=== PATIENT | female | born 1960 | race African-American/Black ===

== ENCOUNTER 2016-12-07 23:08 | Observation (INO) | payer OTHER ==
[~2016-12-07] VITALS: Ht 157.5 cm; Wt 95.0 kg
[~2016-12-07 23:08] MED LIST: HYDR25TA5 PO; PLAV75TA29 PO; POTA10CA PO
[2016-12-07 23:13] VITALS: BP 122/63; PULSE 71; RESP 16; TEMP 97.4; O2SAT 97
--- NOTE | 2016-12-07 23:16 | PD ---
HPI Chief Complaint: General Weakness Time Seen by Provider: 23:13 Travel History International Travel<30 days: No Contact w/Intl Traveler<30days: No Traveled to known affect area: No History of Present Illness HPI This is a 56-year-old female with a history of CHF, COPD and hypertension who presents to the emergency department with low blood pressure feeling weak, short of breath and dizzy. She took a dose of Terazosin which her doctor recently started her on several minutes prior to the onset of her symptoms. When EMS arrived her systolic blood pressure was as low as 70. They gave her 600 cc of IV fluid and since then her blood pressure has been normal. She says she feels a little bit better. Her weakness lasted about an hour, was constant , moderate severity and she had no associated chest pain, fevers or chills. PFSH Past Medical History Hx Anticoagulant Therapy: Yes (PLAVIX AND ASPIRIN) Arthritis: Yes Asthma: Yes Autoimmune Disease: No Blood Disorders: No Anxiety: Yes Depression: Yes Heart Rhythm Problems: No Cancer: No Cardiac Catheterization: Yes Cardiovascular Problems: Yes ([id number] STENTX1) High Cholesterol: Yes Chemotherapy: No Chest Pain: Yes Congestive Heart Failure: Yes COPD: Yes Cerebrovascular Accident: No Coronary Artery Disease: Yes Diabetes: No Diminished Hearing: No Endocrine: No Gastrointestinal Disorders: No GERD: Yes Glaucoma: No Genitourinary: Yes (CHRONIC UTI) Headaches: No Hepatitis: No Hiatal Hernia: No Hypertension: Yes Immune Disorder: No Implanted Vascular Access Dvce: Yes Kidney Stones: No Musculoskeletal: Yes (ARTHRITIS) Neurologic: No Psychiatric: Yes Reproductive: No Respiratory: Yes (COPD) Immunizations Current: Yes Migraines: No Myocardial Infarction: No Radiation Therapy: No Renal Failure: Yes (AFTER STENT PLACED 2005 ) Seizures: No Sickle Cell Disease: No Sleep Apnea: No Thyroid Disease: No Ulcer: No Menopausal: Yes : 6 Para: 5 Miscarriage: 1 Tubal Ligation: Yes Past Surgical History Abdominal Surgery: Yes AICD: No Appendectomy: No Arteriovenous Shunt: No Body Medical Devices: STENTS AND STERNAL WIRE Cardiac Surgery: Yes (QUADRUPLE BYPASS 2004, OPEN HEART TO REMOVE CLIPS S/P INFECTION) Cholecystectomy: Yes Coronary Artery Bypass Graft: Yes (4 BYPASS 2004) Coronary Stent: Yes (1 (2005)) Ear Surgery: No Endocrine Surgery: No Eye Surgery: No Genitourinary Surgery: No Gynecologic Surgery: No Insulin Pump: No Joint Replacement: No Neurologic Surgery: No Oral Surgery: Yes (TEETH REMOVED, NOW WEARS DENTURES) Pacemaker: No Thoracic Surgery: Yes (CHEST OPENED AFTER BYPASS FOR INFECTION ) Other Surgery: Yes (CABG TIMES 4 STENT/TUBAL LIGATION) Social History Alcohol Use: No Tobacco Use: Yes (< 1 PPD) Substance Use: No Allergies-Medications (Allergen,Severity, Reaction): Coded Allergies: Percocet (Verified Allergy, Severe, ITCHING, 12/07/16) Bactrim (Verified Allergy, Mild, RASH, 12/07/16) Compazine (Verified Adverse Reaction, Severe, "JITTERY", 12/07/16) Reported Meds & Prescriptions Reported Meds & Active Scripts Active Reported Amlodipine (Amlodipine Besylate) 10 Mg Tab 10 Mg PO DAILY Losartan (Losartan Potassium) 100 Mg Tab 100 Mg PO DAILY Terazosin (Terazosin HCl) 5 Mg Cap 5 Mg PO HS Potassium Chloride ER (Potassium Chloride) 10 Meq Cap 10 Meq PO DAILY Plavix (Clopidogrel Bisulfate) 75 Mg Tab 75 Mg PO DAILY Hydrochlorothiazide 25 Mg Tab 25 Mg PO DAILY Review of Systems Except as stated in HPI: all other systems reviewed are Neg Physical Exam Narrative GENERAL:Well appearing, no acute distress SKIN: Warm and dry. HEAD: Atraumatic. Normocephalic. EYES: Pupils equal and round. No injection or drainage. ENT: Moist mucous membranes NECK: Trachea midline. CARDIOVASCULAR: Regular rate and rhythm. No murmur appreciated. Trace edema bilateral lower extremities. RESPIRATORY: Clear to auscultation. Breath sounds equal bilaterally. GASTROINTESTINAL: Abdomen soft, non-tender, nondistended. MUSCULOSKELETAL: No obvious deformities. NEUROLOGICAL: Awake and alert. No obvious cranial nerve deficits. Moving all extremities. PSYCHIATRIC: Appropriate mood and affect; insight and judgment normal. Data Data Last Documented VS Vital Signs Date Time Temp Pulse Resp B/P Pulse Ox O2 Delivery O2 Flow Rate FiO2 12/07/16 23:13 97.4 71 16 122/63 97 Room Air Orders Complete Blood Count With Diff (12/07/16 23:13) Comprehensive Metabolic Panel (12/07/16 23:13) ^ Insert Iv (12/07/16 23:13) Troponin I (12/07/16 23:13) Electrocardiogram (12/07/16 ) B-Type Natriuretic Peptide (12/07/16 23:13) Chest, Single Ap (12/07/16 ) Aspirin Chew (Aspirin Chew) (12/08/16 01:00) Magnesium (Mg) (12/08/16 00:47) Admit Order (Ed Use Only) (12/08/16 00:58) Place In Observation (12/08/16 ) Vital Signs (Adult) Q4H (12/08/16 00:58) Activity Oob With Assistance (12/08/16 00:58) Publisher Assistant / Telemetry .CONTINUOUS (12/08/16 00:58) Diet Heart Healthy (12/08/16 Breakfast) Sodium Chloride 0.9% Flush (Ns Flush) (12/08/16 01:00) Sodium Chloride 0.9% Flush (Ns Flush) (12/08/16 09:00) Creatine Kinase (Cpk) (12/08/16 05:30) Creatine Kinase (Cpk) (12/08/16 11:30) Troponin I (12/08/16 05:30) Troponin I (12/08/16 11:30) Electrocardiogram (12/09/16 05:30) Electrocardiogram (12/09/16 11:30) Naloxone Inj (Narcan Inj) (12/08/16 01:00) Labs Laboratory Tests Test 12/07/16 23:20 White Blood Count 10.3 TH/MM3 Red Blood Count 4.41 MIL/MM3 Hemoglobin 11.8 GM/DL Hematocrit 35.5 % Mean Corpuscular Volume 80.5 FL Mean Corpuscular Hemoglobin 26.8 PG Mean Corpuscular Hemoglobin 33.3 % Concent Red Cell Distribution Width 15.2 % Platelet Count 238 TH/MM3 Mean Platelet Volume 9.1 FL Neutrophils (%) (Auto) 64.0 % Lymphocytes (%) (Auto) 28.4 % Monocytes (%) (Auto) 4.4 % Eosinophils (%) (Auto) 2.6 % Basophils (%) (Auto) 0.6 % Neutrophils # (Auto) 6.6 TH/MM3 Lymphocytes # (Auto) 2.9 TH/MM3 Monocytes # (Auto) 0.5 TH/MM3 Eosinophils # (Auto) 0.3 TH/MM3 Basophils # (Auto) 0.1 TH/MM3 CBC Comment DIFF FINAL Differential Comment Sodium Level 139 MEQ/L Potassium Level 3.6 MEQ/L Chloride Level 104 MEQ/L Carbon Dioxide Level 27.6 MEQ/L Anion Gap 7 MEQ/L Blood Urea Nitrogen 19 MG/DL Creatinine 1.53 MG/DL Estimat Glomerular Filtration 42 ML/MIN Rate Random Glucose 110 MG/DL Calcium Level 8.6 MG/DL Total Bilirubin 0.1 MG/DL Aspartate Amino Transf 16 U/L (AST/SGOT) Alanine Aminotransferase 20 U/L (ALT/SGPT) Alkaline Phosphatase 127 U/L Troponin I 0.08 NG/ML B-Type Natriuretic Peptide 65 PG/ML Total Protein 7.3 GM/DL Albumin 3.2 GM/DL MDM Medical Decision Making Medical Screen Exam Complete: Yes Emergency Medical Condition: Yes Interpretation(s) Afebrile, no tachycardia, normotensive No leukocytosis Renal insufficiency Troponin is 0.08 Chest x-ray: No acute process EKG: Normal sinus rhythm, prolonged QT Differential Diagnosis Medication side effect, nSTEMI, arrhythmia, infection Narrative Course This is a 56-year-old female who had an episode of generalized weakness following taking Terazosin which is a new medication for her. She was hypotensive in the field with a systolic blood pressure in the 70s. She was placed on a monitor and an IV was established. EMS had given her 700 cc of fluid. Labs do demonstrate a slightly elevated troponin of 0.08 compared to a typically normal troponin. This could be in the setting of patient's chronic kidney disease or some strain in the setting of hypotension. I continue to think that her symptoms are related to her medication however given the patient' s significant cardiac history I think it's reasonable to observe the patient, monitor her blood pressure, and obtain serial troponins. Diagnosis Primary Impression: Hypotension Qualified Code: I95.2 - Hypotension due to drugs Admitting Information Admitting Physician Requests: Observation Darlene Mejia MD Dec 07, 2016 23:16
[2016-12-07 23:27] LABS: AUTOMATED NEUTROPHIL # 6.6 TH/MM3 (1.8-7.7); BASOPHIL # 0.1 TH/MM3 (0-0.2); BASOPHIL % 0.6 % (0.0-2.0); EOSINOPHIL # 0.3 TH/MM3 (0-0.4); EOSINOPHIL % 2.6 % (0.0-4.0); HEMATOCRIT 35.5 % (35.0-46.0); HEMO FLAGS DIFF FINAL; LYMPH % 28.4 % (9.0-44.0); LYMPHOCYTE # 2.9 TH/MM3 (1.0-4.8); MEAN CELL VOLUME 80.5 FL (80.0-100.0); MEAN CORPUSCULAR HEMOGLOBIN 26.8 PG (27.0-34.0); MEAN CORPUSCULAR HGB CONC 33.3 % (32.0-36.0); MONO % 4.4 % (0.0-8.0); PLATELET COUNT 238 TH/MM3 (150-450); RED BLOOD COUNT 4.41 MIL/MM3 (4.00-5.30); RED CELL DISTRIBUTION WIDTH 15.2 % (11.6-17.2); WHITE BLOOD COUNT 10.3 TH/MM3 (4.0-11.0)
[2016-12-07] MEDS ORDERED: LOSA100T PO (23:30)
[2016-12-07] MEDS ORDERED: TERA5CAP3 PO (23:30)
[2016-12-07] MEDS ORDERED: AMLO10TA2 PO (23:31)
[2016-12-07 23:43] LABS: ANION GAP 7 MEQ/L (5-15); AST (GOT) 16 U/L (15-37); BICARBONATE 27.6 MEQ/L (21.0-32.0); BLOOD UREA NITROGEN 19 MG/DL (7-18); CHLORIDE 104 MEQ/L (98-107); GLOMERULAR FILTRATION RATE 42 ML/MIN (>89); POTASSIUM 3.6 MEQ/L (3.5-5.1); SODIUM (NA) 139 MEQ/L (136-145)
[2016-12-07 23:48] LABS: ALKALINE PHOSPHATASE 127 U/L (45-117); ALT (GPT) 20 U/L (10-53); TOTAL BILIRUBIN ADULT 0.1 MG/DL (0.2-1.0)
[2016-12-08] VITALS (9 sets, daily range): BP systolic 106–131; BP diastolic 55–72; PULSE 62–105; RESP 18–20; TEMP 97.6–98; O2SAT 97–100
--- NOTE | 2016-12-08 00:01 | RADRPT ---
EXAM DATE/TIME: 12/07/2016 23:47 [facility] COMPARISON: CHEST SINGLE AP, September 18, 2015, 22:24. INDICATIONS : Shortness of breath. MEDICAL HISTORY : Hypertension. Chronic obstructive pulmonary disease. Hypercholesterolemia. Congestive heart failu re, Asthma. Gastoresophageal reflux SURGICAL HISTORY : CABG. Coronary artery stent. Cholecystectomy. ENCOUNTER: Initial ACUITY: 1 day PAIN SCORE: 0/10 LOCATION: Bilateral chest FINDINGS: A single view of the chest demonstrates the lungs to be symmetrically aerated without evidence of mas s, infiltrate or effusion. There is a stable scarring in the right upper lung. The heart size is uppe r limits of normal but stable compared to the prior study.. Osseous structures are intact. CONCLUSION: No acute disease. No significant change has occurred. Felipe Collins MD on December 07, 2016 at 23:58 Board Certified Radiologist. This report was verified electronically.
[2016-12-08] MEDS ORDERED: ASPIRIN 81 MG CHEW TAB CHEW ONE (01:00)
[2016-12-08] MEDS ORDERED: SODIUM CHLORIDE 0.9% FLUSH 5 ML FLUSH FLUSH PRN (01:00)
[2016-12-08] MEDS ORDERED: NALOXONE HCL 0.4 MG/ML AMP IV PRN (01:00)
--- NOTE | 2016-12-08 04:35 | HHI.HP ---
[facility] Service [facility] Primary Care Physician Annia Barba MD Admission Diagnosis hypotension, med related Diagnoses: Chief Complaint: dizziness, almost passed out Travel History International Travel<30 Days: No Contact w/Intl Traveler <30 Da: No Traveled to Known Affected Are: No History of Present Illness History from patient, ER physician, medication, interfere medical records. Patient reported that she was taking her terazosin first dose yesterday and all of a sudden she started feeling lightheadedness, dizziness and almost passed out. She therefore called her family members and told him to call 911. She reports she hasn't taken this medicine for a while. It was terazosin. Upon EMS arrival, patient was also noted to have blood pressure in the 70s systolic. This was improved by the time of arrival to ER. EMS did give patient 600 cc fluid bolus. Further work up in ER revealed mild elevation of troponin 0.08. Patient reports of history of coronary artery disease with CABG done. However she denies any chest pain/palpitations/shortness of breath/peripheral edema. She follows up with Dr. Huizar. Apart from the above, patient denies any other symptoms such as nausea/vomiting/ diarrhea. She denies any black stool or red stool. However she is somewhat of a poor historian. She was quite sleepy at the time of my exam and did not want to open her eyes for the first 15 minutes or so. She was also complaining about the bed being not comfortable. Review of Systems Constitutional: COMPLAINS OF: Fatigue, Dizziness, DENIES: Diaphoretic episodes , Fever, Weight gain, Weight loss, Chills Respiratory: DENIES: Apneas, Cough, Wheezing, Hemoptysis, Sputum production, Shortness of breath Cardiovascular: DENIES: Chest pain, Palpitations, Syncope, Dyspnea on Exertion , PND, Lower Extremity Edema Gastrointestinal: DENIES: Abdominal pain, Black stools, Bloody stools, Constipation, Diarrhea, Nausea, Vomiting Genitourinary: DENIES: Urinary frequency, Urinary incontinence, Urgency, Hematuria Musculoskeletal: COMPLAINS OF: Muscle aches, Back pain Past Family Social History Past Medical History Hypertension Obesity CAD - CABG CHF COPD chronic active tobacco abuse Past Surgical History cabg Tubal ligation Coronary angiogram and stenting Reported Medications Medications listed in EMRreviewed Allergies: Coded Allergies: Percocet (Verified Allergy, Severe, ITCHING, 12/08/16) Bactrim (Verified Allergy, Mild, RASH, 12/08/16) Compazine (Verified Adverse Reaction, Severe, "JITTERY", 12/08/16) Family History Reports a family history of cardiac problems in multiple members. Social History Smokes about 5-6 cigarettes a day. Drinks about 3-4 beersabout twice a week. Denies any drug abuse. Physical Exam Vital Signs Vital Signs Date Time Temp Pulse Resp B/P Pulse Ox O2 Delivery O2 Flow Rate FiO2 12/08/16 02:38 105 20 116/66 98 Room Air 12/07/16 23:13 97.4 71 16 122/63 97 Room Air Physical Exam GENERAL: This is a well-nourished, well-developed patient, in no apparent distress. SKIN: No rashes, ecchymoses or lesions. Cool and dry. HEAD: Atraumatic. Normocephalic. No temporal or scalp tenderness. EYES: No scleral icterus. No injection or drainage. ENT: Nose without bleeding, purulent drainage or septal hematoma. NECK: Trachea midline. No JVD CARDIOVASCULAR: Regular rate and rhythm without murmurs, gallops, or rubs. RESPIRATORY: Clear to auscultation. Breath sounds equal bilaterally. No wheezes , rales, or rhonchi. GASTROINTESTINAL: Abdomen soft, non-tender, nondistended. No guarding. MUSCULOSKELETAL: Extremities without clubbing, cyanosis, or edema No calf tenderness. NEUROLOGICAL: Awake and alert. Motor and sensory grossly within normal limits. Normal speech. Laboratory Laboratory Tests Test 12/07/16 23:20 White Blood Count 10.3 Red Blood Count 4.41 Hemoglobin 11.8 Hematocrit 35.5 Mean Corpuscular Volume 80.5 Mean Corpuscular Hemoglobin 26.8 Mean Corpuscular Hemoglobin 33.3 Concent Red Cell Distribution Width 15.2 Platelet Count 238 Mean Platelet Volume 9.1 Neutrophils (%) (Auto) 64.0 Lymphocytes (%) (Auto) 28.4 Monocytes (%) (Auto) 4.4 Eosinophils (%) (Auto) 2.6 Basophils (%) (Auto) 0.6 Neutrophils # (Auto) 6.6 Lymphocytes # (Auto) 2.9 Monocytes # (Auto) 0.5 Eosinophils # (Auto) 0.3 Basophils # (Auto) 0.1 CBC Comment DIFF FINAL Differential Comment Sodium Level 139 Potassium Level 3.6 Chloride Level 104 Carbon Dioxide Level 27.6 Anion Gap 7 Blood Urea Nitrogen 19 Creatinine 1.53 Estimat Glomerular Filtration 42 Rate Random Glucose 110 Calcium Level 8.6 Total Bilirubin 0.1 Aspartate Amino Transf 16 (AST/SGOT) Alanine Aminotransferase 20 (ALT/SGPT) Alkaline Phosphatase 127 Troponin I 0.08 B-Type Natriuretic Peptide 65 Total Protein 7.3 Albumin 3.2 Result Diagram: 12/07/16 2320 12/07/16 2320 Imaging Last 48 hours Impressions Chest X-Ray 12/07/16 0000 Signed Impressions: Service Date/Time: Wednesday, December 07, 2016 23:47 - CONCLUSION: No acute disease. No significant change has occurred. Felipe Collins MD Assessment and Plan Assessment and Plan Impression: Symptomatic hypotension/orthostatic effectdue to terazosin Elevated troponinlikely nonspecific/lab abnormality. However given that patient has high risk for ACS, we'll need to rule it out. Plan: Patient's blood pressure has improved in ER. Given that she does have history of CHF, will avoid IV hydration and hydrate her orally. Will ambulate patient in the morning. Otherwise we'll do serial cardiac enzymes and EKGs. If negative, patient can be followed up with cardiology as an outpatient. Resume her home medications apart from terazosin. However would write parameters to hold if SBP is less than 100. Her hypotension is likely due to terazosin. However history is somewhat limited and she is on multiple antihypertensives at home as well. DVT prophylaxiswith ambulation. Jerica Tejeda MD Dec 08, 2016 04:35
[2016-12-08] MEDS ORDERED: HYDROCHLOROTHIAZIDE 25 MG TAB PO SCH (09:00)
[2016-12-08] MEDS: LOSARTAN 50 MG TAB PO SCH (10:32)
[2016-12-08] MEDS: POTASSIUM CHLORIDE 10 MEQ CAP PO SCH (10:33)
[2016-12-08] MEDS: CLOPIDOGREL 75 MG TAB PO SCH (10:34)
[2016-12-08] MEDS: SODIUM CHLORIDE 0.9% FLUSH 5 ML FLUSH FLUSH SCH ×2 (10:35→21:56)
[2016-12-08] MEDS ORDERED: HEPARIN-D5W INJ 250 ML IV SCH (13:30)
--- NOTE | 2016-12-08 13:35 | HHI.PR ---
Subjective Remarks Follow-up for hypotension and elevated troponin. at bedside. The patient feels well at this time. She denies any further lightheadedness or dizziness. She states she ambulated with PT with no difficulties. She states that last night she took terazosin for the first time, and afterwards felt lightheaded and dizzy. She denies having any chest pain. She does state that the time she had a little shortness of breath and diaphoresis. No nausea. She does not recall when her last stress test or cardiac catheterization was done. Her credit and collections analyst is Dr. Huizar. Objective Vitals Vital Signs Date Time Temp Pulse Resp B/P Pulse Ox O2 Delivery O2 Flow Rate FiO2 12/08/16 10:00 73 18 131/72 97 Room Air 12/08/16 06:00 68 18 120/56 99 Room Air 12/08/16 02:38 105 20 116/66 98 Room Air 12/07/16 23:13 97.4 71 16 122/63 97 Room Air Result Diagram: 12/07/16 2320 12/07/16 232 Imaging Last Impressions Chest X-Ray 12/07/16 0000 Signed Impressions: Service Date/Time: Wednesday, December 07, 2016 23:47 - CONCLUSION: No acute disease. No significant change has occurred. Felipe Collins MD Objective Remarks GENERAL: Well-developed well-nourished. In no acute distress. SKIN: Warm and dry. No lesions noted. HEENT: Normocephalic. Pupils equal and round. Mucous membranes pink and moist. CARDIOVASCULAR: Regular rate and rhythm. No murmur appreciated. RESPIRATORY: No accessory muscle use. Clear to auscultation. Breath sounds equal bilaterally. GASTROINTESTINAL: Abdomen soft, non-tender, nondistended. Bowel sounds x4. MUSCULOSKELETAL: No obvious deformities. No clubbing or cyanosis. No edema. NEUROLOGICAL: Awake and alert. No focal neurological deficits. Moves upper and lower extremities spontaneously. Normal speech. PSYCHIATRIC: Appropriate mood and affect; insight and judgment normal. A/P Problem List: (1) Hypotension ICD Code: I95.9 Status: Acute (2) CKD (chronic kidney disease) ICD Code: N18.9 Status: Chronic (3) Acute kidney injury ICD Code: N17.9 Status: Acute (4) Elevated troponin ICD Code: R79.89 Status: Acute (5) CAD (coronary artery disease) ICD Code: I25.10 Status: Chronic Assessment and Plan 56-year-old female with a past peripheral history of HTN, CAD, CHF, COPD who presented with hypotension Hypotension/near syncope: Thought to be secondary to medication effect, symptoms started after taking first dose of terazosin. Hypotension resolved after receiving IVF with EMS. Patient was noted to have elevated troponin, we' ll need to evaluate for underlying cardiac etiology of symptoms, see below. PT consulted, no restrictions. Check orthostatics. Elevated troponin with history of CAD: No specific chest pain. Troponins elevated at 0.08, 0.08, 0.36. EKG personally reviewed, prolonged QT interval, no acute ST changes. CXR clear. Possible NSTEMI vs demand ischemia from hypotension? Continue Plavix. Start heparin gtt. Continue to trend troponins. Consult patient's credit and collections analyst. Monitor on telemetry. Hypertension: Hold terazosin. Resumed home losartan, amlodipine, HCTZ. Monitor and adjust medications as needed, may need to decrease home BP meds with episode of hypotension. BLANK on CKD stage III: Creatinine 1.53, previously 1.21 on 09/19/15. IVF. Follow -up BMP. DVT prophylaxis: Heparin drip as above. Plan of care discussed with Dr. Garner. Discharge Planning Follow-up cardiology recommendations. Problem Qualifiers (1) Hypotension: Qualified Code: I95.2 - Hypotension due to drugs (2) CKD (chronic kidney disease): Qualified Code: N18.3 - CKD (chronic kidney disease), stage 3 (moderate) (3) CAD (coronary artery disease): Qualified Code: I25.10 - Coronary artery disease involving [place] heart, angina presence unspecified, unspecified vessel or lesion type Santo Weiss Dec 08, 2016 13:35 Koki Garner MD Dec 09, 2016 11:31
[2016-12-08] MEDS: SODIUM CHLOR 0.9% 1000 ML INJ 1,000 ML IV SCH (14:45)
[2016-12-08 15:06] LABS: PROTHROMBIN TIME - PATIENT 10.7 SEC (9.8-11.6)
[2016-12-08 15:16] LABS: BICARBONATE 27.2 MEQ/L (21.0-32.0); POTASSIUM 3.5 MEQ/L (3.5-5.1)
[2016-12-08 15:29] LABS: AUTOMATED NEUTROPHIL # 5.3 TH/MM3 (1.8-7.7); BASOPHIL % 0.5 % (0.0-2.0); EOSINOPHIL # 0.2 TH/MM3 (0-0.4); EOSINOPHIL % 2.6 % (0.0-4.0); HEMATOCRIT 35.5 % (35.0-46.0); HEMO FLAGS DIFF FINAL; LYMPH % 30.5 % (9.0-44.0); LYMPHOCYTE # 2.7 TH/MM3 (1.0-4.8); MEAN CORPUSCULAR HEMOGLOBIN 26.9 PG (27.0-34.0); MEAN CORPUSCULAR HGB CONC 33.2 % (32.0-36.0); NEUT % 60.4 % (16.0-70.0); PLATELET COUNT 244 TH/MM3 (150-450); RED BLOOD COUNT 4.39 MIL/MM3 (4.00-5.30); RED CELL DISTRIBUTION WIDTH 15.5 % (11.6-17.2); WHITE BLOOD COUNT 8.8 TH/MM3 (4.0-11.0)
--- NOTE | 2016-12-08 17:22 | EKG ---
Date Performed: 12/07/2016 Time Performed: 23:24:46 PTAGE: 56 years EKG: Sinus rhythm POSSIBLE LEFT ATRIAL ENLARGEMENT PROLONGED QT INTERVAL When compared to previous tracing, sinus rate has increased. QT interval is slightly shorter, but remains prolonged. ABNORMAL ECG PREVIOUS TRACING : 09/18/2015 20.48 DOCTOR: Guanako Malave Interpretating Date/Time 12/08/2016 17:22:06
[2016-12-08 20:35] LABS: APTT (PATIENT) 37.5 SEC (24.3-30.1)
[2016-12-08] MEDS: TOBRAMYCIN 0.3%/DEXAMETHASONE 0.1% OPHT SUSP 5 ML BTL RIGHT EYE SCH (21:56)
--- NOTE | 2016-12-08 23:05 | MB ---
cc: HAILEY SANTOS DATE OF CONSULTATION December 08, 2016 DATE OF 1960 REASON FOR CONSULTATION Elevated troponin. HISTORY OF PRESENT ILLNESS 56-year-old female with known CAD status post CABG in 2004, PCI in 2005, COPD, active smoker, hypertension, hyperlipidemia, obesity. She presented to the hospital with an episode of hypotension in the setting of being started on Terazosin for high blood pressure by primary care physician. According to [facility] report, she was found hypotensive with a systolic blood pressure in the 70s and a diastolic in the 60s. She denied any chest pain, shortness of breath, palpitations, nausea, vomiting, diarrhea, recent fever or chills. She reports being compliant with medications. However, she has not been followed up in our office now for a long time, for more than three years. REVIEW OF SYSTEMS Negative except for what is mentioned in the HPI. PAST MEDICAL HISTORY 1. Hypertension. 2. Obesity. 3. CAD, status post CABG x 4 in 2004. 4. PCI to the [place] in 2005. 5. COPD. 6. Active smoker. 7. Obesity. 8. Hypertension. 9. Hyperlipidemia. PAST SURGICAL HISTORY 1. CABG. 2. Tubal ligation. 3. Coronary PCIs. HOME MEDICATIONS 1. Terazosin 5 mg p.o. daily. 2. Potassium chloride 10 mEq p.o. daily. 3. Losartan 100 mg p.o. daily. 4. Hydrochlorothiazide 25 mg p.o. daily. 5. Plavix 75 mg p.o. daily. 6. Amlodipine 10 mg p.o. daily. FAMILY HISTORY Noncontributory. SOCIAL HISTORY She drinks alcohol socially. She smokes daily 5-6 cigarettes per day. She denies any illicit drug use. PHYSICAL EXAMINATION Vital Signs: Temperature 97.4, respiratory rate 18, heart rate 64, blood pressure 118/59, O2 sat 100% on room air. General: She is awake, alert, oriented x 3, in no acute distress. Neck: There is no JVD, no carotid bruits. Heart: Regular rate and rhythm. No murmurs, rubs or gallops appreciated. Lungs: Clear to auscultation bilaterally. No wheezes, no rhonchi, no rales. Abdomen: Obese. Positive bowel sounds. Soft, nontender, nondistended. Extremities: No cyanosis or edema. Pulses throughout. DATA CBC shows a hemoglobin of 11, hematocrit of 35, platelet count of 244. INR 1. Chemistries: Sodium 142, potassium 3.5, BUN 21 and creatinine 1.5. Troponins 0.08, 0.08 and 0.36. CHEST X-RAY No acute cardiopulmonary process. EKG Sinus rhythm with inferior Q-waves suggesting old infarct. ASSESSMENT AND PLAN A 56-year-old female with above complaint, history of CAD and bypass and PCI in the past, presented with an episode of hypotension in the setting of taking Terazosin at home for the first time. Systolic blood pressure documented by [facility] in the 70s. She was successfully resuscitated and while she has been here in the hospital her systolic blood pressure is in the 120s. Currently she remains fairly hemodynamically stable. She does not have any complaints. She reports she is feeling much better but on initial blood work her third troponin went up to 0.34, thus cardiology has been consulted. Telemetry unchanged from previous, no acute ST changes. She does not have any active cardiac complaints. She does have some renal insufficiency that would account for her mildly elevated troponins as well as this episode of documented hypotension. Thus at this time, given that the patient did not have any active cardiac complaints and her dizziness episode can be explained with the severe hypotension from the newly prescribed medication, I would not pursue any invasive cardiac workup at this time. Optimize her medications for CAD, get an echocardiogram to assess LV systolic function and have her follow up with her outpatient automotive diagnostic technician. Thank you for the opportunity to take part in the care of this patient. MD JEFFERSON [place] /4:52 PM /10:37 PM IRAJ
[2016-12-09] VITALS: BP 125/57; PULSE 70; RESP 20; TEMP 97.8; O2SAT 97
[2016-12-09] MEDS: SODIUM CHLOR 0.9% 1000 ML INJ 1,000 ML IV SCH (01:12)
[2016-12-09 04:00] VITALS: BP 121/66; PULSE 74; RESP 20; TEMP 97.8; O2SAT 100
[2016-12-09 04:11] LABS: APTT (PATIENT) 52.3 SEC (24.3-30.1)
[2016-12-09 08:19] VITALS: BP 116/57; PULSE 55; RESP 18; TEMP 97.7; O2SAT 97
[2016-12-09] MEDS: SODIUM CHLORIDE 0.9% FLUSH 5 ML FLUSH FLUSH SCH (09:00)
[2016-12-09] MEDS: CLOPIDOGREL 75 MG TAB PO SCH (09:49)
[2016-12-09] MEDS: POTASSIUM CHLORIDE 10 MEQ CAP PO SCH (09:49)
[2016-12-09] MEDS: LOSARTAN 50 MG TAB PO SCH (09:49)
[2016-12-09] MEDS: TOBRAMYCIN 0.3%/DEXAMETHASONE 0.1% OPHT SUSP 5 ML BTL RIGHT EYE SCH (09:50)
[2016-12-09 09:53] VITALS: BP 119/57; PULSE 64
[2016-12-09 11:11] LABS: AUTOMATED NEUTROPHIL # 3.5 TH/MM3 (1.8-7.7); BASOPHIL # 0.1 TH/MM3 (0-0.2); BASOPHIL % 0.8 % (0.0-2.0); EOSINOPHIL # 0.4 TH/MM3 (0-0.4); EOSINOPHIL % 5.2 % (0.0-4.0); HEMO FLAGS DIFF FINAL; LYMPH % 37.2 % (9.0-44.0); LYMPHOCYTE # 2.5 TH/MM3 (1.0-4.8); MEAN CELL VOLUME 80.8 FL (80.0-100.0); MEAN CORPUSCULAR HEMOGLOBIN 26.3 PG (27.0-34.0); MEAN CORPUSCULAR HGB CONC 32.6 % (32.0-36.0); MONO % 5.6 % (0.0-8.0); NEUT % 51.2 % (16.0-70.0); PLATELET COUNT 227 TH/MM3 (150-450); RED CELL DISTRIBUTION WIDTH 15.5 % (11.6-17.2); WHITE BLOOD COUNT 6.8 TH/MM3 (4.0-11.0)
[2016-12-09 11:12] LABS: APTT (PATIENT) 39.7 SEC (24.3-30.1)
[2016-12-09 11:29] LABS: BICARBONATE 26.7 MEQ/L (21.0-32.0); POTASSIUM 3.8 MEQ/L (3.5-5.1)
--- NOTE | 2016-12-09 11:32 | HHI.PR ---
Subjective Remarks Says she feels much better today and she will like to go home. Blood pressure is better controlled. No chest pain, shortness of breath, lightheadedness, nausea, vomiting, diarrhea or constipation. Objective Vitals Vital Signs Date Time Temp Pulse Resp B/P Pulse Ox O2 Delivery O2 Flow Rate FiO2 12/09/16 09:53 64 119/57 12/09/16 08:19 97.7 55 18 116/57 97 12/09/16 04:00 97.8 74 20 121/66 100 12/09/16 00:00 97.8 70 20 125/57 97 12/08/16 20:00 97.6 69 20 117/58 100 12/08/16 20:00 63 12/08/16 17:10 98.0 65 20 131/66 97 12/08/16 16:50 72 18 124/68 98 12/08/16 15:53 64 18 118/59 100 12/08/16 15:07 74 18 106/55 94 18 118/59 12/08/16 14:00 62 18 113/55 100 Room Air I/O 12/08/16 12/08/16 12/08/16 12/09/16 12/09/16 12/09/16 07:00 15:00 23:00 07:00 15:00 23:00 Intake Total 687 ml 1037 ml Output Total 900 ml Balance 687 ml 137 ml Intake Oral 360 ml 480 ml IV Total 327 ml 557 ml Output Urine Total 900 ml Result Diagram: 12/09/16 1040 12/09/16 1040 Imaging Last Impressions Chest X-Ray 12/07/16 0000 Signed Impressions: Service Date/Time: Wednesday, December 07, 2016 23:47 - CONCLUSION: No acute disease. No significant change has occurred. Felipe Collins MD Objective Remarks GENERAL: Well-developed well-nourished. In no acute distress. SKIN: Warm and dry. No lesions noted. HEENT: Normocephalic. Pupils equal and round. Mucous membranes pink and moist. CARDIOVASCULAR: Regular rate and rhythm. No murmur appreciated. RESPIRATORY: No accessory muscle use. Clear to auscultation. Breath sounds equal bilaterally. GASTROINTESTINAL: Abdomen soft, non-tender, nondistended. Bowel sounds x4. MUSCULOSKELETAL: No obvious deformities. No clubbing or cyanosis. No edema. NEUROLOGICAL: Awake and alert. No focal neurological deficits. Moves upper and lower extremities spontaneously. Normal speech. PSYCHIATRIC: Appropriate mood and affect; insight and judgment normal. A/P Problem List: (1) Hypotension ICD Code: I95.9 Status: Acute (2) CKD (chronic kidney disease) ICD Code: N18.9 Status: Chronic (3) Acute kidney injury ICD Code: N17.9 Status: Acute (4) Elevated troponin ICD Code: R79.89 Status: Acute (5) CAD (coronary artery disease) ICD Code: I25.10 Status: Chronic Assessment and Plan 56-year-old female with a past peripheral history of HTN, CAD, CHF, COPD who presented with hypotension Hypotension/near syncope: Thought to be secondary to medication effect, symptoms started after taking first dose of terazosin. Hypotension resolved after receiving IVF with EMS. Patient was noted to have elevated troponin, we' ll need to evaluate for underlying cardiac etiology of symptoms, see below. PT consulted, no restrictions. Check orthostatics. Elevated troponin with history of CAD: No specific chest pain. Troponins elevated at 0.08, 0.08, 0.36. EKG personally reviewed, prolonged QT interval, no acute ST changes. CXR clear. Possible NSTEMI vs demand ischemia from hypotension? Continue Plavix. Start heparin gtt. Continue to trend troponins. Consult patient's shoe worker. Monitor on telemetry. Seen by cardiology recommends 2D ECHO , ordered and pending Hypertension: Hold terazosin. Resumed home losartan, amlodipine, HCTZ. Monitor and adjust medications as needed, may need to decrease home BP meds with episode of hypotension. BLANK on CKD stage III: Creatinine 1.53, previously 1.21 on 09/19/15. IVF. Follow -up BMP. DVT prophylaxis: Heparin drip as above. Discharge Planning Discharged home in fairly well condition To follow-up with PCP and shoe worker outpatient Medications per medication reconciliation Activity ad jose. as tolerated Diet healthy heart diet Problem Qualifiers (1) Hypotension: Qualified Code: I95.2 - Hypotension due to drugs (2) CKD (chronic kidney disease): Qualified Code: N18.3 - CKD (chronic kidney disease), stage 3 (moderate) (3) CAD (coronary artery disease): Qualified Code: I25.10 - Coronary artery disease involving [place] heart, angina presence unspecified, unspecified vessel or lesion type Koki Garner MD Dec 09, 2016 11:32
--- NOTE | 2016-12-09 11:36 | HHI.DS ---
Discharge Summary Admission Date Dec 08, 2016 at 01:00 Discharge Date: Dec 09, 2016 Admitting Diagnosis hypotension, med related (1) Hypotension ICD Code: I95.9 Diagnosis: Principal (2) CKD (chronic kidney disease) ICD Code: N18.9 Diagnosis: Secondary (3) Elevated troponin ICD Code: R79.89 Diagnosis: Principal (4) CAD (coronary artery disease) ICD Code: I25.10 Diagnosis: Secondary Procedures none Brief History - From Admission History from patient, ER physician, medication, interfere medical records. Patient reported that she was taking her terazosin first dose yesterday and all of a sudden she started feeling lightheadedness, dizziness and almost passed out. She therefore called her family members and told him to call 911. She reports she hasn't taken this medicine for a while. It was terazosin. Upon EMS arrival, patient was also noted to have blood pressure in the 70s systolic. This was improved by the time of arrival to ER. EMS did give patient 600 cc fluid bolus. Further work up in ER revealed mild elevation of troponin 0.08. Patient reports of history of coronary artery disease with CABG done. However she denies any chest pain/palpitations/shortness of breath/peripheral edema. She follows up with Dr. Huizar. Apart from the above, patient denies any other symptoms such as nausea/vomiting/ diarrhea. She denies any black stool or red stool. However she is somewhat of a poor historian. She was quite sleepy at the time of my exam and did not want to open her eyes for the first 15 minutes or so. She was also complaining about the bed being not comfortable. CBC/BMP: 12/09/16 1040 12/09/16 1040 Significant Findings Laboratory Tests Test 12/07/16 12/08/16 12/08/16 12/08/16 23:20 05:30 11:30 14:16 Mean Corpuscular Hemoglobin 26.8 PG 26.9 PG (27.0-34.0) (27.0-34.0) Blood Urea Nitrogen 19 MG/DL (7-18) 21 MG/DL (7-18) Creatinine 1.53 MG/DL 1.54 MG/DL (0.50-1.00) (0.50-1.00) Estimat Glomerular Filtration 42 ML/MIN (>89) 42 ML/MIN (>89) Rate Random Glucose 110 MG/DL (74-106) Total Bilirubin 0.1 MG/DL (0.2-1.0) Alkaline Phosphatase 127 U/L (45-117) Troponin I 0.08 NG/ML 0.08 NG/ML 0.36 NG/ML (0.02-0.05) (0.02-0.05) (0.02-0.05) Albumin 3.2 GM/DL (3.4-5.0) Chloride Level 108 MEQ/L (98-107) Test 12/08/16 12/09/16 12/09/16 19:59 03:26 10:40 Activated Partial 37.5 SEC 52.3 SEC 39.7 SEC Thromboplast Time (24.3-30.1) (24.3-30.1) (24.3-30.1) Troponin I 0.37 NG/ML (0.02-0.05) Hemoglobin 11.1 GM/DL (11.6-15.3) Hematocrit 34.0 % (35.0-46.0) Mean Corpuscular Hemoglobin 26.3 PG (27.0-34.0) Eosinophils (%) (Auto) 5.2 % (0.0-4.0) Blood Urea Nitrogen 24 MG/DL (7-18) Creatinine 1.22 MG/DL (0.50-1.00) Estimat Glomerular Filtration 55 ML/MIN (>89) Rate Imaging Last Impressions Chest X-Ray 12/07/16 0000 Signed Impressions: Service Date/Time: Wednesday, December 07, 2016 23:47 - CONCLUSION: No acute disease. No significant change has occurred. Felipe Collins MD PE at Discharge GENERAL: Well-developed well-nourished. In no acute distress. SKIN: Warm and dry. No lesions noted. HEENT: Normocephalic. Pupils equal and round. Mucous membranes pink and moist. CARDIOVASCULAR: Regular rate and rhythm. No murmur appreciated. RESPIRATORY: No accessory muscle use. Clear to auscultation. Breath sounds equal bilaterally. GASTROINTESTINAL: Abdomen soft, non-tender, nondistended. Bowel sounds x4. MUSCULOSKELETAL: No obvious deformities. No clubbing or cyanosis. No edema. NEUROLOGICAL: Awake and alert. No focal neurological deficits. Moves upper and lower extremities spontaneously. Normal speech. PSYCHIATRIC: Appropriate mood and affect; insight and judgment normal. Hospital Course 56-year-old female with a past peripheral history of HTN, CAD, CHF, COPD who presented with hypotension Hypotension/near syncope: Thought to be secondary to medication effect, symptoms started after taking first dose of terazosin. Hypotension resolved after receiving IVF with EMS. Patient was noted to have elevated troponin, we' ll need to evaluate for underlying cardiac etiology of symptoms, see below. PT consulted, no restrictions. Check orthostatics. Elevated troponin with history of CAD: No specific chest pain. Troponins elevated at 0.08, 0.08, 0.36. EKG personally reviewed, prolonged QT interval, no acute ST changes. CXR clear. Possible NSTEMI vs demand ischemia from hypotension? Continue Plavix. Start heparin gtt. Continue to trend troponins. Consult patient's gallery assistant. Monitor on telemetry. Seen by cardiology recommends 2D ECHO normal. Hypertension: Hold terazosin. Resumed home losartan, amlodipine, HCTZ. Monitor and adjust medications as needed, may need to decrease home BP meds with episode of hypotension. BLANK on CKD stage III: Creatinine 1.53, previously 1.21 on 09/19/15. IVF. Follow -up BMP. DVT prophylaxis: Heparin drip as above. Patient improved had a normal ECHO. Patient was DC home in fairly good condition. To follow up as OP with pCP and consultants. Pt Condition on Discharge: Fair Discharge Disposition: Discharge Home Discharge Time: > 30 minutes Discharge Instructions DIET: Follow Instructions for: Heart Healthy Diet Activities you can perform: Regular-No Restrictions Follow up Referrals: Cardiology - 2 Weeks PCP Follow-up - 3-5 Days Continued Medications: Amlodipine (Amlodipine) 10 Mg Tab 10 MG PO DAILY Blood Pressure Management #30 Ref 0 TAB Clopidogrel (Plavix) 75 Mg Tab 75 MG PO DAILY Blood Clot Prevention #30 Ref 0 TAB Losartan (Losartan) 100 Mg Tab 100 MG PO DAILY Blood Pressure Management #30 Ref 0 TAB Potassium Chloride ER (Potassium Chloride ER) 10 Meq Cap 10 MEQ PO DAILY Electrolyte Replacement #30 Ref 0 CAP Terazosin (Terazosin) 5 Mg Cap 5 MG PO HS #30 Ref 0 CAP Discontinued Medications: Hydrochlorothiazide (Hydrochlorothiazide) 25 Mg Tab 25 MG PO DAILY #30 Ref 0 TAB Koki Garner MD Dec 09, 2016 11:36
[2016-12-09 12:24] VITALS: BP 115/57; PULSE 62; RESP 18; TEMP 97.5; O2SAT 100
--- NOTE | 2016-12-09 14:51 | EC ---
Study Study Date:12/09/2016 STUDY CONCLUSIONS SUMMARY LEFT VENTRICLE: The cavity size was normal. Wall thickness was increased in a pattern of mild LVH. Systolic function was normal. The estimated ejection fraction was 65%. Wall motion was normal; there were no regional wall motion abnormalities. If LV function is below 40, please consider prescribing an ACEI or ARB or document rationale for non-use. PROCEDURE DATA STUDY STATUS: Elective. Procedure: Transthoracic echocardiography. Image quality was good. Scanning was performed from the parasternal, apical, and subcostal acoustic windows. Study completion: The patient tolerated the procedure well. Transthoracic echocardiography. M-mode, complete 2D, complete spectral Doppler, and color Doppler. Height: Height: 62in. Weight: Weight: 208.6lb. Body mass index: BMI: 38.2kg/m^2. Body surface area: BSA: 1.95m^2. Patient status: Inpatient. CARDIAC ANATOMY LEFT VENTRICLE: The cavity size was normal. Wall thickness was increased in a pattern of mild LVH. Systolic function was normal. The estimated ejection fraction was 65%. Wall motion was normal; there were no regional wall motion abnormalities. AORTIC VALVE: Trileaflet; normal thickness leaflets. Doppler: Transvalvular velocity was within the normal range. There was no stenosis. No regurgitation. Valve area: 1.81cm^2(VTI). Indexed valve area: 0.93cm^2/m^2 (VTI). Valve area: 1.84cm^2 (Vmax). Indexed valve area: 0.94cm^2/m^2 (Vmax). Mean gradient: 6mm Hg (S). Peak gradient: 10mm Hg (S). AORTA: Aortic root: The aortic root was normal in size. MITRAL VALVE: Structurally normal valve. Doppler: Transvalvular velocity was within the normal range. There was no evidence for stenosis. Trace regurgitation. Peak gradient: 4mm Hg (D). LEFT ATRIUM: The atrium was normal in size. RIGHT VENTRICLE: The cavity size was normal. Wall thickness was normal. PULMONIC VALVE: Doppler: Transvalvular velocity was within the normal range. There was no evidence for stenosis. No regurgitation. TRICUSPID VALVE: Structurally normal valve. Doppler: Transvalvular velocity was within the normal range. Trace regurgitation. PULMONARY ARTERY: The main pulmonary artery was normal-sized. Systolic pressure was within the normal range. RIGHT ATRIUM: The atrium was normal in size. PERICARDIUM: There was no pericardial effusion. SYSTEMIC VEINS: Inferior vena cava: The vessel was normal in size. Patient weight: 208.6lb _Ejection fraction:_ 65-75% _Fractional shortening:_ 32% up to 5Kg 5-11.5Kg 11.6-22.9Kg 23-45Kg 45-57Kg Aortic Root 7-13 <17 13-22 17-27 17-27 LA diam 6-13 <23 24-38 33-47 37-40 RVID 10-17 7-15 7-15 7-18 8-17 LVIDd 12-22 <32 24-38 33-47 37-40 LVPW 2-4 3-6 5-7 6-8 7-8 IVS 2-4 3-6 5-7 6-8 7-8 BASIC MEASUREMENTS ADULT NORMAL Left ventricle LV internal dimension, ED, chordal *39.6 mm 43-52 level, PLAX LV internal dimension, ES, chordal 24.1 mm 23-38 level, PLAX Fractional shortening, chordal level, 39 % >29 PLAX LV posterior wall thickness, ED 14 mm IVS/LVPW ratio, ED 1 <1.3 Ventricular septum Septal thickness, ED 14 mm Aortic valve Leaflet separation 20 mm 15-26 Aorta Root diameter, ED 30 mm Left atrium Anterior-posterior dimension 36 mm Anterior-posterior dimension index 1.85 cm/m^2 <2.2 BASIC MEASUREMENTS ADULT NORMAL Aortic valve Leaflet separation 20 mm 15-26 DOPPLER MEASUREMENTS ADULT NORMAL Aortic valve Peak velocity, S 160 cm/s Mean velocity, S 112 cm/s VTI, S 34.8 cm Mean gradient, S 6 mm Hg Peak gradient, S 10 mm Hg Valve area, VTI 1.81 cm^2 Valve area index, VTI 0.93 cm^2/m^2 Valve area, Vmax 1.84 cm^2 Valve area index, Vmax 0.94 cm^2/m^2 Mitral valve Peak E-wave velocity 96.7 cm/s Peak A-wave velocity 82.4 cm/s Deceleration time *324 ms 150-230 Peak gradient, D 4 mm Hg Peak E/A ratio 1.2 Tricuspid valve Regurgitant peak velocity 248 cm/s Peak RV-RA gradient, S 25 mm Hg Maximal regurgitant velocity 248 cm/s Pulmonic valve Peak velocity, S 69.2 cm/s LEGEND: Mean values are shown as u=mean value. Asterisk (*) sena values outside specified normal range. Prepared and signed by Paresh Burciaga [id number]
--- NOTE | 2016-12-09 16:55 | EKG ---
Date Performed: 12/08/2016 Time Performed: 11:38:05 PTAGE: 56 years EKG: Sinus rhythm POSSIBLE LEFT ATRIAL ENLARGEMENT NONSPECIFIC T-WAVE ABNORMALITY BORDERLINE ECG PREVIOUS TRACING : 12/08/2016 05.26 Compared to prior tracing no significant change DOCTOR: Ephraim Scott Interpretating Date/Time 12/09/2016 16:55:10
--- NOTE | 2016-12-12 07:49 | EKG ---
Date Performed: 12/08/2016 Time Performed: 05:26:24 PTAGE: 56 years EKG: Sinus rhythm WITH SINUS ARRHYTHMIA POSSIBLE LEFT ATRIAL ENLARGEMENT POSSIBLE INFERIOR MYOCARDIAL INFARCTION Since previous tracing, possible inferior myocardial infarction Pattern is sligtly more prominant. BORDERL INE ECG PREVIOUS TRACING : 12/07/2016 23.24 DOCTOR: Guanako Malave Interpretating Date/Time 12/12/2016 07:48:35
== END 2016-12-09 15:48 | disposition home or self-care (01) ==
LOC: NEPC 23:08 → NEDA 12-08 01:00 → NEDH 12-08 05:15 → N04B 12-08 17:03
PROVIDERS: ADMIT Hospitalist; ATTEND Hospitalist
DX: I95.2 Hypotension due to drugs (principal); N17.9 Acute kidney failure, unspecified; N18.3 Chronic kidney disease, stage 3 (moderate); I13.0 Hypertensive heart and chronic kidney disease with heart failure and stage 1 through stage 4 chronic kidney disease, or unspecified chronic kidney disease; R79.89 Other specified abnormal findings of blood chemistry; E78.5 Hyperlipidemia, unspecified; E78.00 Pure hypercholesterolemia, unspecified; I25.10 Atherosclerotic heart disease of native coronary artery without angina pectoris; F17.210 Nicotine dependence, cigarettes, uncomplicated; J44.9 Chronic obstructive pulmonary disease, unspecified; J45.909 Unspecified asthma, uncomplicated; K21.9 Gastro-esophageal reflux disease without esophagitis; Z95.1 Presence of aortocoronary bypass graft; Z95.5 Presence of coronary angioplasty implant and graft
CPT/HCPCS: 71010; 80048; 80053; 82550; 83735; 83880; 84484; 85025; 85610; 85730; 93005; 93306; 97163; 99285; G0378; G8987; G8988; J1644; J7030

== ENCOUNTER 2017-10-30 06:37 | Emergency (ER) | payer OTHER ==
[~2017-10-30] VITALS: Ht 157.5 cm; Wt 97.0 kg
[~2017-10-30 06:37] MED LIST changes: +AMLO10TA2 PO; -HYDR25TA5 PO; +LOSA100T PO; +TERA5CAP3 PO
[2017-10-30 06:38] VITALS: BP 145/82; PULSE 109; RESP 20; TEMP 99; O2SAT 100
[2017-10-30] MEDS ORDERED: SODIUM CHLOR 0.9% 1000 ML INJ 1,000 ML IV SCH (07:12)
[2017-10-30] MEDS ORDERED: METOCLOPRAMIDE HCL 10 MG TAB PO ONE (07:15)
[2017-10-30] MEDS ORDERED: SODIUM CHLORIDE 0.9% FLUSH 10 ML FLUSH IV FLUSH PRN (07:15)
[2017-10-30] MEDS ORDERED: diphenhydrAMINE HCL 25 MG CAP PO ONE (07:15)
[2017-10-30] MEDS ORDERED: ONDANSETRON HCL 4 MG/2 ML VIAL IVP ONE (07:15)
[2017-10-30] MEDS ORDERED: SODIUM CHLOR 0.9% 1000 ML INJ 1,000 ML IV ONE (07:15)
--- NOTE | 2017-10-30 07:33 | PD ---
HPI Chief Complaint: GI Complaint Time Seen by Provider: 07:03 Travel History International Travel<30 days: No Contact w/Intl Traveler<30days: No Traveled to known affect area: No History of Present Illness HPI patient is a 57-year-old female presents emergency department for evaluation of body aches all over her body, headache, nausea without vomiting and just a general feeling of not feeling well over the past 36-48 hours. Patient states she did not try anything prior to arrival. States she has not been bringing anything up with cough. Denies any abdominal pain. States symptoms are gradually worsening. No other sick contacts at home. PFSH Past Medical History Hx Anticoagulant Therapy: Yes (PLAVIX AND ASPIRIN) Arthritis: Yes Asthma: Yes Autoimmune Disease: No Blood Disorders: No Anxiety: Yes Depression: Yes Heart Rhythm Problems: No Cancer: No Cardiac Catheterization: Yes Cardiovascular Problems: Yes ([id number]) High Cholesterol: Yes Chemotherapy: No Chest Pain: Yes Congestive Heart Failure: Yes COPD: Yes Cerebrovascular Accident: No Coronary Artery Disease: Yes Diabetes: No Diminished Hearing: No Endocrine: No Gastrointestinal Disorders: No GERD: Yes Glaucoma: No Genitourinary: Yes (CHRONIC UTI) Headaches: No Hepatitis: No Hiatal Hernia: No Hypertension: Yes Immune Disorder: No Implanted Vascular Access Dvce: Yes Kidney Stones: No Musculoskeletal: Yes (ARTHRITIS) Neurologic: No Psychiatric: Yes Reproductive: No Respiratory: Yes (COPD) Immunizations Current: Yes Migraines: No Myocardial Infarction: No Radiation Therapy: No Renal Failure: Yes (AFTER STENT PLACED 2005 - ) Seizures: No Sickle Cell Disease: No Sleep Apnea: No Thyroid Disease: No Ulcer: No Menopausal: Yes : 6 Para: 5 Miscarriage: 1 Tubal Ligation: Yes Past Surgical History Abdominal Surgery: Yes AICD: No Appendectomy: No Arteriovenous Shunt: No Body Medical Devices: STENTS AND STERNAL WIRE Cardiac Surgery: Yes (QUADRUPLE BYPASS 2004, OPEN HEART TO REMOVE CLIPS S/P INFECTION) Cholecystectomy: Yes Coronary Artery Bypass Graft: Yes (QUAD BYPASS 2004) Coronary Stent: Yes (1 (2005)) Ear Surgery: No Endocrine Surgery: No Eye Surgery: No Genitourinary Surgery: No Gynecologic Surgery: No Insulin Pump: No Joint Replacement: No Neurologic Surgery: No Oral Surgery: Yes (TEETH REMOVED, NOW WEARS DENTURES) Pacemaker: No Thoracic Surgery: Yes Other Surgery: Yes Family History Family Myocardial Infarction: Yes (FATHER) Social History Alcohol Use: No Tobacco Use: Yes (1/2 PPD) Substance Use: No Allergies-Medications (Allergen,Severity, Reaction): Coded Allergies: acetaminophen (Unverified Allergy, Severe, ITCHING, 10/31/17) oxycodone (Unverified Allergy, Severe, ITCHING, 10/31/17) sulfamethoxazole (Unverified Allergy, Mild, RASH, 10/31/17) trimethoprim (Unverified Allergy, Mild, RASH, 10/31/17) prochlorperazine (Unverified Adverse Reaction, Severe, "JITTERY", 10/31/17 ) Reported Meds & Prescriptions Reported Meds & Active Scripts Active Zofran (Ondansetron HCl) 4 Mg Tab 4 Mg PO Q6HR PRN Fioricet (Zuguywopsk-Wszgzolyzzxsf-Gapdzyvg) 50-300-40 Mg Cap 1 Cap PO Q6HR PRN Tamiflu (Oseltamivir Phosphate) 75 Mg Cap 75 Mg PO BID 5 Days Reported Amlodipine (Amlodipine Besylate) 10 Mg Tab 10 Mg PO DAILY Losartan (Losartan Potassium) 100 Mg Tab 100 Mg PO DAILY Terazosin (Terazosin HCl) 5 Mg Cap 5 Mg PO HS Potassium Chloride ER (Potassium Chloride) 10 Meq Cap 10 Meq PO DAILY Plavix (Clopidogrel Bisulfate) 75 Mg Tab 75 Mg PO DAILY Review of Systems Except as stated in HPI: all other systems reviewed are Neg Physical Exam Narrative GENERAL: Well-developed, overweight female in no obvious distress. SKIN: Focused skin assessment warm/dry. HEAD: Atraumatic. Normocephalic. EYES: Pupils equal and round. No scleral icterus. No injection or drainage. ENT: No nasal bleeding or discharge. Mucous membranes pink and moist. TMs clear bilaterally, oropharynx clear moist. NECK: Trachea midline. No JVD. CARDIOVASCULAR: Regular rate and rhythm. No murmur appreciated. RESPIRATORY: No accessory muscle use. Clear to auscultation. Breath sounds equal bilaterally. GASTROINTESTINAL: Abdomen soft, non-tender, nondistended. Hepatic and splenic margins not palpable. MUSCULOSKELETAL: No obvious deformities. No clubbing. No cyanosis. No edema. NEUROLOGICAL: Awake and alert. No obvious cranial nerve deficits. Motor grossly within normal limits. Normal speech. PSYCHIATRIC: Appropriate mood and affect; insight and judgment normal. Data Data Last Documented VS Orders Orders Complete Blood Count With Diff (10/30/17 07:12) Comprehensive Metabolic Panel (10/30/17 07:12) Urinalysis - C+S If Indicated (10/30/17 07:12) Iv Access Insert/Monitor (10/30/17 07:12) Ecg Monitoring (10/30/17 07:12) Oximetry (10/30/17 07:12) Ondansetron Inj (Zofran Inj) (10/30/17 07:15) Sodium Chlor 0.9% 1000 Ml Inj (Ns 1000 M (10/30/17 07:12) Sodium Chloride 0.9% Flush (Ns Flush) (10/30/17 07:15) Chest, Single Ap (10/30/17 07:12) Influenzae A/B Antigen (10/30/17 07:12) Sodium Chlor 0.9% 1000 Ml Inj (Ns 1000 M (10/30/17 07:15) Diphenhydramine (Benadryl) (10/30/17 07:15) Metoclopramide (Reglan) (10/30/17 07:15) Ketorolac Inj (Toradol Inj) (10/30/17 08:30) Ed Discharge Order (10/30/17 09:42) Labs Laboratory Tests Test 10/30/17 07:30 10/30/17 09:28 White Blood Count 8.7 TH/MM3 Red Blood Count 4.83 MIL/MM3 Hemoglobin 13.0 GM/DL Hematocrit 39.2 % Mean Corpuscular Volume 81.1 FL Mean Corpuscular Hemoglobin 26.9 PG Mean Corpuscular Hemoglobin Concent 33.1 % Red Cell Distribution Width 15.6 % Platelet Count 252 TH/MM3 Mean Platelet Volume 8.2 FL Neutrophils (%) (Auto) 83.9 % Lymphocytes (%) (Auto) 8.4 % Monocytes (%) (Auto) 5.5 % Eosinophils (%) (Auto) 1.5 % Basophils (%) (Auto) 0.7 % Neutrophils # (Auto) 7.3 TH/MM3 Lymphocytes # (Auto) 0.7 TH/MM3 Monocytes # (Auto) 0.5 TH/MM3 Eosinophils # (Auto) 0.1 TH/MM3 Basophils # (Auto) 0.1 TH/MM3 CBC Comment DIFF FINAL Differential Comment Blood Urea Nitrogen 14 MG/DL Creatinine 1.27 MG/DL Random Glucose 90 MG/DL Total Protein 8.5 GM/DL Albumin 3.7 GM/DL Calcium Level 9.2 MG/DL Alkaline Phosphatase 140 U/L Aspartate Amino Transf (AST/SGOT) 22 U/L Alanine Aminotransferase (ALT/SGPT) 25 U/L Total Bilirubin 0.5 MG/DL Sodium Level 137 MEQ/L Potassium Level 4.1 MEQ/L Chloride Level 105 MEQ/L Carbon Dioxide Level 26.2 MEQ/L Anion Gap 6 MEQ/L Estimat Glomerular Filtration Rate 52 ML/MIN Urine Color COLORLESS Urine Turbidity CLEAR Urine pH 6.0 Urine Specific [place] 1.003 Urine Protein NEG mg/dL Urine Glucose (UA) NEG mg/dL Urine Ketones NEG mg/dL Urine Occult Blood SMALL Urine Nitrite NEG Urine Bilirubin NEG Urine Urobilinogen LESS THAN 2.0 MG/DL Urine Leukocyte Esterase NEG Urine RBC 1 /hpf Urine Squamous Epithelial Cells <1 /hpf Urine Bacteria OCC /hpf Urine Mucus FEW /lpf Microscopic Urinalysis Comment CULT NOT INDICATED MDM Medical Decision Making Medical Screen Exam Complete: Yes Emergency Medical Condition: Yes Differential Diagnosis Influenza, viral illness, pneumonia, strep throat. Narrative Course Patient roomed emergency department, initial workup including influenza chest x- ray basic labs are reassuring. The patient given medicine in the emergency department is feeling better after interventions above. Last 24 hours Impressions Chest X-Ray 10/30/17 0712 Signed Impressions: Service Date/Time: Monday, October 30, 2017 07:47 - CONCLUSION: No acute disease. Zach Fortune Jr., MD Discussed with with the patient symptomatic management returned ED criteria. She is stable for discharge. Diagnosis Primary Impression: Flu-like symptoms Med/Other Pt SpecificInfo: Prescription(s) given Scripts Ondansetron (Zofran) 4 Mg Tab 4 MG PO Q6HR Y for NAUSEA OR VOMITING, #20 TAB 0 Refills Prov: Leo Tuttle MD 10/30/17 Ezcigwuhkc-Kjqyytxzkvndr-Jycwmcqo (Fioricet) 50-300-40 Mg Cap 1 CAP PO Q6HR Y for HEADACHE, #15 CAP 0 Refills Prov: Leo Tuttle MD 10/30/17 Oseltamivir (Tamiflu) 75 Mg Cap 75 MG PO BID for Mgmt Viral Infection for 5 Days, #10 CAP 0 Refills Prov: Leo Tuttle MD 10/30/17 Disposition: 01 DISCHARGE HOME Condition: Stable Leo Tuttle MD Oct 30, 2017 07:33
[2017-10-30 07:49] LABS: AUTOMATED NEUTROPHIL # 7.3 TH/MM3 (1.8-7.7); BASOPHIL # 0.1 TH/MM3 (0-0.2); BASOPHIL % 0.7 % (0.0-2.0); EOSINOPHIL # 0.1 TH/MM3 (0-0.4); EOSINOPHIL % 1.5 % (0.0-4.0); HEMATOCRIT 39.2 % (35.0-46.0); LYMPH % 8.4 % (9.0-44.0); LYMPHOCYTE # 0.7 TH/MM3 (1.0-4.8); MEAN CELL VOLUME 81.1 FL (80.0-100.0); MEAN CORPUSCULAR HEMOGLOBIN 26.9 PG (27.0-34.0); MEAN CORPUSCULAR HGB CONC 33.1 % (32.0-36.0); MEAN PLATELET VOLUME 8.2 FL (7.0-11.0); MONO % 5.5 % (0.0-8.0); MONOCYTE # 0.5 TH/MM3 (0-0.9); NEUT % 83.9 % (16.0-70.0); PLATELET COUNT 252 TH/MM3 (150-450); RED BLOOD COUNT 4.83 MIL/MM3 (4.00-5.30); RED CELL DISTRIBUTION WIDTH 15.6 % (11.6-17.2); WHITE BLOOD COUNT 8.7 TH/MM3 (4.0-11.0)
--- NOTE | 2017-10-30 08:09 | RADRPT ---
EXAM DATE/TIME: 10/30/2017 07:47 [facility] COMPARISON: CHEST SINGLE AP, December 07, 2016, 23:47. INDICATIONS : Patient states cough. MEDICAL HISTORY : Hypertension. Chronic obstructive pulmonary disease. Hypercholesterolemia. Congestive heart failu re, Asthma. Gastoresophageal reflux SURGICAL HISTORY : CABG. Cholecystectomy. Coronary artery stent. ENCOUNTER: Initial ACUITY: 1 day PAIN SCORE: 0/10 LOCATION: Bilateral chest FINDINGS: A single view of the chest demonstrates the lungs to be symmetrically aerated without evidence of mas s, infiltrate or effusion. Stable linear scarring within the right midlung. The cardiomediastinal co ntours are unremarkable. Osseous structures are intact. CONCLUSION: No acute disease. Zach Fortune Jr., MD on October 30, 2017 at 8:06 Board Certified Radiologist. This report was verified electronically.
[2017-10-30 08:10] LABS: ALKALINE PHOSPHATASE 140 U/L (45-117); TOTAL BILIRUBIN ADULT 0.5 MG/DL (0.2-1.0); TOTAL PROTEIN 8.5 GM/DL (6.4-8.2)
[2017-10-30 08:15] LABS: ALBUMIN 3.7 GM/DL (3.4-5.0); ALT (GPT) 25 U/L (10-53); AST (GOT) 22 U/L (15-37); BICARBONATE 26.2 MEQ/L (21.0-32.0); BLOOD UREA NITROGEN 14 MG/DL (7-18); CALCIUM 9.2 MG/DL (8.5-10.1); CHLORIDE 105 MEQ/L (98-107); CREATININE 1.27 MG/DL (0.50-1.00); GLOMERULAR FILTRATION RATE 52 ML/MIN (>89); GLUCOSE,RANDOM 90 MG/DL (74-106); SODIUM (NA) 137 MEQ/L (136-145)
[2017-10-30] MEDS ORDERED: KETOROLAC TROMETHAMINE 30 MG/ML (IVP) VIAL IV PUSH ONE (08:30)
[2017-10-30 08:43] VITALS: BP 180/84; PULSE 97; RESP 22; O2SAT 100
[2017-10-30 09:18] VITALS: BP 172/81; PULSE 94; RESP 20; O2SAT 100
[2017-10-30 09:26] VITALS: BP 140/73; PULSE 98; RESP 20; O2SAT 100
[2017-10-30 09:44] LABS: BACTERIA, URINE OCC /hpf; BILIRUBIN, URINE NEG (NEG); BLOOD, URINE SMALL (NEG); GLUCOSE,URINE NEG (NEG); KETONE, URINE NEG (NEG); MUCUS URINE FEW /lpf (OCC); NITRITE,URINE NEG (NEG); SQUAMOUS EPITHELIAL CELL URINE <1 /hpf (0-5); URINE COLOR COLORLESS (YELLW/STRAW); URINE LEUKOCYTE ESTERASE NEG (NEG)
[2017-10-30] MEDS ORDERED: BUTA1CAP PO (09:49)
[2017-10-30] MEDS ORDERED: ZOFR4TAB PO (09:49)
[2017-10-30] MEDS ORDERED: OSEL75 PO (09:49)
[2017-10-30 10:02] VITALS: RESP 16
== END 2017-10-30 10:29 | disposition home or self-care (01) ==
LOC: NEPC 06:37
DX: R51 Headache (principal); R11.0 Nausea; F17.200 Nicotine dependence, unspecified, uncomplicated; I11.0 Hypertensive heart disease with heart failure; I50.9 Heart failure, unspecified; I25.10 Atherosclerotic heart disease of native coronary artery without angina pectoris
CPT/HCPCS: 71010; 80053; 81001; 85025; 87804; 96361; 96374; 96375; 99285; J1885; J2405; J7030

== ENCOUNTER 2017-10-31 21:10 | Emergency (ER) | payer OTHER ==
[~2017-10-31] VITALS: Ht 157.5 cm; Wt 100.0 kg
[~2017-10-31 21:10] MED LIST changes: +BUTA1CAP PO; +OSEL75 PO; +ZOFR4TAB PO
[2017-10-31 21:25] VITALS: BP 141/64; PULSE 54; RESP 14; TEMP 98.1; O2SAT 99
--- NOTE | 2017-10-31 21:46 | RADRPT ---
EXAM DATE/TIME: 10/31/2017 21:34 [facility] COMPARISON: CHEST SINGLE AP, October 30, 2017, 7:47. INDICATIONS : Cough. MEDICAL HISTORY : Hypertension. Chronic obstructive pulmonary disease. Congestive heart failure. Asthma. Smoker. SURGICAL HISTORY : CABG. Cardiac stents. ENCOUNTER: Initial ACUITY: 1 day PAIN SCORE: 4/10 LOCATION: Bilateral chest FINDINGS: A single view of the chest demonstrates the lungs to be symmetrically aerated without evidence of mas s, infiltrate or effusion. Stable linear scarring within the right midlung. The cardiomediastinal co ntours are unremarkable. Osseous structures are intact. CONCLUSION: Stable appearance to the lungs. No consolidative infiltrates. Zach Maldonado MD on October 31, 2017 at 21:43 Board Certified Radiologist. This report was verified electronically.
[2017-10-31 21:59] LABS: AUTOMATED NEUTROPHIL # 2.6 TH/MM3 (1.8-7.7); BASOPHIL % 0.8 % (0.0-2.0); EOSINOPHIL # 0.2 TH/MM3 (0-0.4); HEMATOCRIT 35.5 % (35.0-46.0); HEMOGLOBIN 11.6 GM/DL (11.6-15.3); LYMPHOCYTE # 1.5 TH/MM3 (1.0-4.8); MEAN CELL VOLUME 82.5 FL (80.0-100.0); MEAN CORPUSCULAR HEMOGLOBIN 26.9 PG (27.0-34.0); MEAN CORPUSCULAR HGB CONC 32.6 % (32.0-36.0); MEAN PLATELET VOLUME 8.6 FL (7.0-11.0); MONO % 11.2 % (0.0-8.0); MONOCYTE # 0.5 TH/MM3 (0-0.9); PLATELET COUNT 199 TH/MM3 (150-450); RED CELL DISTRIBUTION WIDTH 15.8 % (11.6-17.2); WHITE BLOOD COUNT 4.9 TH/MM3 (4.0-11.0)
--- NOTE | 2017-10-31 22:06 | PD ---
HPI Chief Complaint: Cold / Flu Symptoms Time Seen by Provider: 21:21 Travel History International Travel<30 days: No Contact w/Intl Traveler<30days: No Traveled to known affect area: No History of Present Illness HPI The patient is a 57 year old female who presents to the [facility] emergency department with a history of generalized weakness, dizziness, cough, congestion, generalized body aches that began on Monday. The patient was seen in the emergency department regarding the symptoms yesterday. The patient was diagnosed with influenza and given a prescription for Tamiflu and Zofran. She reports that she did take the Zofran yesterday and has not vomited since yesterday. She reports that yesterday she had between 2 and 3 episodes of vomiting. She reports that she read on the Tamiflu that a side effect could be vomiting, therefore she has not started it yet. She reports that while drinking some Gatorade this afternoon she began to feel generalized weakness, dizziness, and nausea again, therefore she called ambulance services. On review of systems, the patient denies having any known fevers. The patient reports having a cough and congestion. She reports that her cough is dry in character. She denies having any neck pain, chest pain, shortness of breath, abdominal pain, diarrhea, urinary symptoms, or other neurologic symptoms. The patient reports that she's had a diminished appetite over the last few days. The patient was brought in by ambulance services. The patient was given Zofran 4 mg IV, normal saline at 400 mL bolus 1. The patient's blood sugar prior to arrival was noted be 82. PFSH Past Medical History Narrative Medical The patient's past medical history is significant for coronary artery disease status post four-vessel bypass, stent placement, history of congestive heart failure, obesity, hypertension, COPD, tobacco use. Hx Anticoagulant Therapy: Yes (PLAVIX AND ASPIRIN) Arthritis: Yes Asthma: Yes Autoimmune Disease: No Blood Disorders: No Anxiety: Yes Depression: Yes Heart Rhythm Problems: No Cancer: No Cardiac Catheterization: Yes Cardiovascular Problems: Yes ([id number]) High Cholesterol: Yes Chemotherapy: No Chest Pain: Yes Congestive Heart Failure: Yes COPD: Yes Cerebrovascular Accident: No Coronary Artery Disease: Yes Diabetes: No Diminished Hearing: No Endocrine: No Gastrointestinal Disorders: No GERD: Yes Glaucoma: No Genitourinary: Yes (CHRONIC UTI) Headaches: No Hepatitis: No Hiatal Hernia: No Hypertension: Yes Immune Disorder: No Implanted Vascular Access Dvce: Yes Kidney Stones: No Musculoskeletal: Yes (ARTHRITIS) Neurologic: No Psychiatric: Yes Reproductive: No Respiratory: Yes (COPD) Immunizations Current: Yes Migraines: No Myocardial Infarction: No Radiation Therapy: No Renal Failure: Yes (AFTER STENT PLACED 2005 - ) Seizures: No Sickle Cell Disease: No Sleep Apnea: No Thyroid Disease: No Ulcer: No ?: Not Menopausal: Yes : 6 Para: 5 Miscarriage: 1 Tubal Ligation: Yes Past Surgical History Narrative Surgical The patient's past surgical history is significant for coronary artery bypass grafting, coronary artery catheterization with stent placement, bilateral tubal ligation, cholecystectomy Abdominal Surgery: Yes AICD: No Appendectomy: No Arteriovenous Shunt: No Body Medical Devices: STENTS AND STERNAL WIRE Cardiac Surgery: Yes (QUADRUPLE BYPASS 2004, OPEN HEART TO REMOVE CLIPS S/P INFECTION) Cholecystectomy: Yes Coronary Artery Bypass Graft: Yes (QUAD BYPASS 2004) Coronary Stent: Yes (1 (2005)) Ear Surgery: No Endocrine Surgery: No Eye Surgery: No Genitourinary Surgery: No Gynecologic Surgery: No Insulin Pump: No Joint Replacement: No Neurologic Surgery: No Oral Surgery: Yes (TEETH REMOVED, NOW WEARS DENTURES) Pacemaker: No Thoracic Surgery: Yes Other Surgery: Yes Social History Alcohol Use: No Tobacco Use: Yes (11/14 PPD) Substance Use: No Allergies-Medications (Allergen,Severity, Reaction): Coded Allergies: acetaminophen (Unverified Allergy, Severe, ITCHING, 10/31/17) oxycodone (Unverified Allergy, Severe, ITCHING, 10/31/17) sulfamethoxazole (Unverified Allergy, Mild, RASH, 10/31/17) trimethoprim (Unverified Allergy, Mild, RASH, 10/31/17) prochlorperazine (Unverified Adverse Reaction, Severe, "JITTERY", 10/31/17 ) Reported Meds & Prescriptions Reported Meds & Active Scripts Active Zofran (Ondansetron HCl) 4 Mg Tab 4 Mg PO Q6HR PRN Fioricet (Iudpgeihta-Hcunusdmlvskp-Hylahdvl) 50-300-40 Mg Cap 1 Cap PO Q6HR PRN Tamiflu (Oseltamivir Phosphate) 75 Mg Cap 75 Mg PO BID 5 Days Reported Amlodipine (Amlodipine Besylate) 10 Mg Tab 10 Mg PO DAILY Losartan (Losartan Potassium) 100 Mg Tab 100 Mg PO DAILY Terazosin (Terazosin HCl) 5 Mg Cap 5 Mg PO HS Potassium Chloride ER (Potassium Chloride) 10 Meq Cap 10 Meq PO DAILY Plavix (Clopidogrel Bisulfate) 75 Mg Tab 75 Mg PO DAILY Review of Systems Except as stated in HPI: all other systems reviewed are Neg General / Constitutional: No: Fever Eyes: No: Visual changes HENT: Positive: Rhinorrhea, Congestion, No: Headaches Cardiovascular: No: Chest Pain or Discomfort, Dyspnea on exertion Respiratory: Positive: Cough, No: Shortness of Breath Gastrointestinal: Positive: Nausea, Vomiting, Loss of Appetite, No: Diarrhea, Abdominal Pain, Changes in Bowel Habits, Indigestion Genitourinary: No: Dysuria Musculoskeletal: No: Pain Skin: No Rash Neurologic: Positive: Weakness (generalized weakness), Dizziness, No: Focal Abnormalities, Change in Mentation, Slurred Speech, Sensory Disturbance Psychiatric: No: Depression Endocrine: No: Polydipsia Hematologic/Lymphatic: No: Easy Bruising Physical Exam Narrative General: The patient is a well-developed well-nourished female in no acute distress. Head and Neck exam: Head is normocephalic atraumatic. Eyes: EOMI, pupils are equal round and reactive to light. Nose: Midline septum with pink mucous membranes Mouth: Dentition unremarkable. Moist mucus membranes. Posterior oropharynx is not erythematous. No tonsillar hypertrophy. Uvula midline. Airway patent. Neck: No palpable lymphadenopathy. No nuchal rigidity. No thyromegaly. Cardiovascular: Sinus bradycardia in the 50s without murmurs, gallops, or rubs. No pulse deficit to the extremities and simultaneous auscultation and palpation of her radial artery. Lungs: Clear to auscultation bilaterally. No wheezes, rhonchi, or rales. Abdomen: Soft, with reported tenderness on palpation of the midepigastric area, no other tenderness on palpation of the other quadrants of the abdomen. The patient reports that she feels like the abdominal pain is related to persistent coughing. No guarding, rebound, or rigidity. Normal bowel sounds are audible. No tenderness on palpation of McBurney's point. Negative Lyn's sign. Extremities: No clubbing, cyanosis, or edema. 2+ pulses in all 4 extremities. No calf tenderness on palpation. Back: No costovertebral angle tenderness to palpation. Neurologic Exam: Cranial nerves 2-12 were intact on exam. Strength is 5/5 in all 4 extremities. No sensory deficits noted. Skin Exam: No rash noted. Intact skin that is warm and dry. Data Data Last Documented VS Vital Signs Date Time Temp Pulse Resp B/P (MAP) Pulse Ox O2 Delivery O2 Flow Rate FiO2 10/31/17 21:27 14 99 Room Air 10/31/17 21:25 98.1 54 141/64 (89) Orders Orders Electrocardiogram (10/31/17 21:25) Complete Blood Count With Diff (10/31/17 21:25) Comprehensive Metabolic Panel (10/31/17:) Lipase (10/31/17:) Magnesium (Mg) (10/31/17:) Thyroid Stimulating Hormone (10/31/17:25) Chest, Single Ap (10/31/17 21:25) Iv Access Insert/Monitor (10/31/17 21:25) Ecg Monitoring (10/31/17:) Oximetry (10/31/17 21:25) Labs Laboratory Tests Test 10/31/17 21:40 White Blood Count 4.9 TH/MM3 Red Blood Count 4.30 MIL/MM3 Hemoglobin 11.6 GM/DL Hematocrit 35.5 % Mean Corpuscular Volume 82.5 FL Mean Corpuscular Hemoglobin 26.9 PG Mean Corpuscular Hemoglobin Concent 32.6 % Red Cell Distribution Width 15.8 % Platelet Count 199 TH/MM3 Mean Platelet Volume 8.6 FL Neutrophils (%) (Auto) 53.0 % Lymphocytes (%) (Auto) 31.0 % Monocytes (%) (Auto) 11.2 % Eosinophils (%) (Auto) 4.0 % Basophils (%) (Auto) 0.8 % Neutrophils # (Auto) 2.6 TH/MM3 Lymphocytes # (Auto) 1.5 TH/MM3 Monocytes # (Auto) 0.5 TH/MM3 Eosinophils # (Auto) 0.2 TH/MM3 Basophils # (Auto) 0.0 TH/MM3 CBC Comment DIFF FINAL Differential Comment Blood Urea Nitrogen 19 MG/DL Creatinine 1.49 MG/DL Random Glucose 95 MG/DL Total Protein 6.7 GM/DL Albumin 2.9 GM/DL Calcium Level 7.9 MG/DL Magnesium Level 1.8 MG/DL Alkaline Phosphatase 102 U/L Aspartate Amino Transf (AST/SGOT) 26 U/L Alanine Aminotransferase (ALT/SGPT) 17 U/L Total Bilirubin 0.2 MG/DL Sodium Level 141 MEQ/L Potassium Level 3.9 MEQ/L Chloride Level 108 MEQ/L Carbon Dioxide Level 27.6 MEQ/L Anion Gap 5 MEQ/L Estimat Glomerular Filtration Rate 43 ML/MIN Lipase 131 U/L Thyroid Stimulating Hormone 3rd Gen 2.000 uIU/ML MDM Medical Decision Making Medical Screen Exam Complete: Yes Emergency Medical Condition: Yes Medical Record Reviewed: Yes Differential Diagnosis Viral syndrome, versus influenza, versus electrolyte derangements, versus pancreatitis Narrative Course During the course of the patients emergency department visit, the patients history, examination, and differential diagnosis were reviewed with the patient. The patient was placed on a quality improvement coordinator with oximetry and frequent blood pressure monitoring. The patient had IV access obtained and blood work sent for analysis. The patient's electronic medical record was reviewed. The patient's laboratory studies done yesterday were reviewed. A lipase was not done at that time. Influenza testing was done, however was actually negative. Chest x-ray was done and showed no acute cardiopulmonary disease. An ECG was done on arrival today. The patient has a sinus bradycardia rate of 53. No acute ST segment elevation or depression. T waves are inverted in V1, V2. QRS duration is 94 ms, QTC 472 ms. The patients laboratory studies were reviewed and remarkable for a white count of 4.9, hemoglobin 11.6, platelets 199 with 11.2 monocytes consistent with a viral illness. CMP is remarkable for a chloride of 108, BUN 19, creatinine 1.49 which is slightly increased compared to 14 and 1.27 respectively. TSH is 2 , lipase 131. Radiology studies were reviewed and remarkable for a chest x-ray that shows no acute cardiopulmonary disease. The patient will be discharged home to continue gentle rehydration. Nausea medication as previously prescribed. The patient is resting comfortably and feels better, is alert and in no distress. The patients results and examination findings were discussed with the patient. The repeat examination is unremarkable and benign. The history, exam, diagnostic testing, and current condition do not suggest any significant pathology to warrant further testing, continued ED treatment, admission, or surgical evaluation at this point. The vital signs have been stable. The patient does not have uncontrollable pain, intractable vomiting, or other significant symptoms. The patient's condition is stable and appropriate for discharge. The patient will pursue further outpatient evaluation with a primary care physician or other designated or consulting physician as indicated in the discharge instructions. The patient expressed understanding and was agreeable with this plan. Diagnosis Primary Impression: Viral syndrome Additional Impression: Nausea Referrals: Primary Care Physician 2 days Patient Instructions: General Instructions, Viral Syndrome (ED) Med/Other Pt SpecificInfo: No Change to Meds Disposition: 01 DISCHARGE HOME Condition: Stable Kailyn Hdez MD Oct 31, 2017 22:06
[2017-10-31 22:27] LABS: ALBUMIN 2.9 GM/DL (3.4-5.0); ALT (GPT) 17 U/L (10-53); AST (GOT) 26 U/L (15-37); BICARBONATE 27.6 MEQ/L (21.0-32.0); BLOOD UREA NITROGEN 19 MG/DL (7-18); CALCIUM 7.9 MG/DL (8.5-10.1); CHLORIDE 108 MEQ/L (98-107); CREATININE 1.49 MG/DL (0.50-1.00); GLOMERULAR FILTRATION RATE 43 ML/MIN (>89); GLUCOSE,RANDOM 95 MG/DL (74-106); LIPASE 131 U/L (73-393); MAGNESIUM 1.8 MG/DL (1.5-2.5); SODIUM (NA) 141 MEQ/L (136-145)
[2017-10-31 22:42] LABS: ALKALINE PHOSPHATASE 102 U/L (45-117); TOTAL BILIRUBIN ADULT 0.2 MG/DL (0.2-1.0); TOTAL PROTEIN 6.7 GM/DL (6.4-8.2)
--- NOTE | 2017-11-01 08:57 | EKG ---
Date Performed: 10/31/2017 Time Performed: 21:41:02 PTAGE: 57 years EKG: SINUS BRADYCARDIA Cannot rule out INFERIOR MYOCARDIAL INFARCTION ABNORMAL ECG No significa nt change from prior electrocardiogram. DOCTOR: Augustine Rios Interpretating Date/Time 11/01/2017 08:56:21
== END 2017-10-31 23:47 | disposition home or self-care (01) ==
LOC: NEPE 21:10
DX: B34.9 Viral infection, unspecified (principal); R11.2 Nausea with vomiting, unspecified; F17.200 Nicotine dependence, unspecified, uncomplicated; I11.0 Hypertensive heart disease with heart failure; I50.9 Heart failure, unspecified; I25.10 Atherosclerotic heart disease of native coronary artery without angina pectoris; Z79.02 Long term (current) use of antithrombotics/antiplatelets
CPT/HCPCS: 71010; 80053; 83690; 83735; 84443; 85025; 93005; 99285